=== PATIENT | male | born 2000 ===

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

== ENCOUNTER 2024-05-02 15:09 | Emergency (ER) | payer OTHER, SELFPAY ==
[2024-05-02] VITALS (18 sets, daily range): BP systolic 101–142; BP diastolic 59–80; PULSE 66–80; RESP 12–34; TEMP 38; O2SAT 93–100; BMI 24.9
--- NOTE | 2024-05-02 15:24 | EKG_ITS ---
[address] [address] [address] [address] Test Date: 2024-05-02 Pat Name: Michael Crain Department: Room: Gender: Male Oxygen Therapist: JOSE : 2000 Requested By: Order Number: [id number] Reading MD: Dominic Eli Measurements Intervals [place] Rate: 70 P: 45 CO: 142 QRS: 20 QRSD: 98 T: 42 QT: 372 QTc: 401 Interpretive Statements Normal sinus rhythm Electronically Signed On 05-03-2024 18:29:20 PDT by Dominic Eli
--- NOTE | 2024-05-02 15:38 | DI.RAD.S_ITS ---
PROCEDURE: XR CHEST 1V INDICATIONS: chest pain TECHNIQUE: One view of the chest was acquired. COMPARISON: None. FINDINGS: Surgical changes and devices: None. Lungs and pleura: Lungs are mildly abnormal with what appears to be mild perihilar pneumonitis. No pleural effusions or pneumothorax. Mediastinum: Mediastinal contours appear normal. Heart size is normal. Bones and chest wall: No suspicious bony lesions. Overlying soft tissues appear unremarkable. IMPRESSION: Suspect mild perihilar pneumonitis, likely viral in origin. Dictated by: Edgadro Hughes M.D. on 05/02/2024 at 15:59 Approved by: Edgardo Hughes M.D. on 05/02/2024 at 15:59
[2024-05-02 15:48] LABS: INR 1.1 (0.9-1.3); Prothrombin Time 12.5 SECONDS (9.4-12.5)
[2024-05-02 15:51] LABS: PTT Partial Thromboplastin Tim 33 SECONDS (25.1-36.5)
[2024-05-02 15:53] LABS: Add Manual Diff / Slide Review NO; Alanine Aminotransferase 33 IU/L (<50); Albumin 4.6 g/dL (3.5-5.0); Albumin Globulin Ratio 1.6 (1.0-2.8); Alkaline Phosphatase 52 U/L (38-126); Aspartate Aminotransferase 33 IU/L (17-59); BUN Creatinine Ratio 17.9 (6-22); Basophils Absolute Auto 0 /uL (0-100); Basophils Percent Auto 0.6 % (0-2); Bilirubin Total 2.1 mg/dL (0.2-1.3); Blood Urea Nitrogen 14 mg/dL (9-20); Calcium 8.8 mg/dL (8.4-10.2); Carbon Dioxide 24 mmol/L (22-32); Chloride 104 mmol/L (98-107); Creatine Kinase 46 U/L (55-170); Eosinophils Absolute Auto 200 /uL (0-450); Eosinophils Percent Auto 3.1 % (2-4); Estimated Glomerular Filt Rate > 60 mL/min (>60); Globulin 2.8 g/dL (1.7-4.1); Glucose 135 mg/dL (70-100); HEMOLYSIS 30 (0-50); Hematocrit 44.3 % (41-53); Hemoglobin 15.4 g/dL (13.5-17.5); Lipase 48 U/L (23-300); Lymphocytes Absolute Auto 2500 /uL (1100-4500); Magnesium 1.8 mg/dL (1.6-2.3); Mean Corpuscular HGB Conc 34.8 % (30-36); Mean Corpuscular Hemoglobin 29.5 PG (26-34); Mean Corpuscular Volume 84.8 fL (80-100); Monocytes Absolute Auto 700 /uL (0-900); Monocytes Percent Auto 9.9 % (3-14); Neutrophils Absolute Auto 3800 /uL (1500-7000); Neutrophils Percent Auto 52.4 % (50-75); Platelet Count 214 X10^3/uL (150-400); Potassium 3.6 mmol/L (3.4-5.1); Red Blood Cell Count 5.23 X10^6/uL (4.5-5.9); Red Cell Distribution Width 12.6 % (11.6-14.8); Sodium 139 mmol/L (137-145); Total Protein 7.4 g/dL (6.3-8.2); White Blood Cell Count 7.2 X10^3/uL (4.5-11.0)
[2024-05-02 16:04] LABS: NT-proBNP (BNP-Adult 18+) < 20 pg/mL (<125); Troponin I < 0.012 ng/mL (0.01-0.034)
--- NOTE | 2024-05-02 19:17 | ED.SYNCOPE ---
HPI - Syncope General Chief Complaint: Syncope Stated Complaint: Syncopal Episode Time Seen by Provider: 05/02/24 15:15 Source: patient and EMS Mode of arrival: EMS Limitations: no limitations History of Present Illness HPI narrative: 24-year-old male without any significant past medical history presents for syncopal event. According to the patient he has history of syncope whenever he sees blood, he states that today he had a bowel movement saw some blood in the toilet paper and subsequently had 3 episodes of syncope. These episodes lasted no more than 10-15 seconds with complete return to baseline immediately. While patient was being triaged and getting IV patient also had episode of syncope which lasted only for few seconds he again returned to baseline. After insertion of the IV patient well-appearing nontoxic just stating he feels a little tired but otherwise there was no witnessed seizure-like activity. He otherwise is not complaining of any headache visual disturbances chest pain shortness breath fever chills nausea vomiting abdominal pain or any other GI/ symptoms. Related Data Home Medications Medication Instructions Recorded Confirmed cephalexin 500 mg capsule (Keflex) 500 mg PO QID 03/08/18 03/08/18 Allergies Allergy/AdvReac Type Severity Reaction Status Date / Time No Known Drug Allergies Allergy Verified 03/08/18 11:33 Review of Systems Review of Systems Narrative: General: Denies fever, chills, weight loss HEENT: Denies headache, eye drainage, eye irritation, head trauma, sore throat, voice change Cardiovascular: Denies any chest pain, palpitations, tachycardia Respiratory: Denies any shortness of breath, cough, wheeze, stridor GI/: Denies any abdominal pain, nausea, vomiting, diarrhea, bright red blood per rectum, melanotic stools, urinary frequency, urinary retention, dysuria, hematuria MSK: Denies any joint pain, muscle pains, swelling Skin: Denies any rashes, lesions, discoloration Neuro: Positive syncope, denies headache lightheadedness dizziness Psych: Denies SI/HI Patient History Medical History (Updated 05/02/24 @ 19:34 by Dominic Pritchard DO) Pain in right toe(s) Ingrowing nail Cellulitis of right toe Cellulitis of left toe Social History household members: family Smoking Status: Never smoker Smoking Status: Never smoker Exam Narrative Exam Narrative: General: Cooperative, comfortable, well-developed, not in acute distress HEENT: Normocephalic, atraumatic, PERRLA, normal sclera, eyelids normal, Neck: Active full range of motion, atraumatic Chest: Normal to inspection, negative crepitus, no overlying erythema ecchymosis Respiratory: Normal respiratory effort, not in acute respiratory distress, clear to auscultation bilaterally negative cough, wheeze, tachypnea, rhonchi, rales Cardiology: Regular rate rhythm negative gallop, murmur, rubs GI/: Normal to inspection, soft, nonrigid, no tenderness to palpation, exam deferred MSK: Full range of active range of motion of all 4 extremities, atraumatic Skin: No rashes lesions noted Neuro: NIH of 0, no focal deficits Alert awake oriented x3, moves all 4 extremities spontaneously, cranial nerves intact, able to answer all questions appropriately follows commands appropriately Psych: Cooperative, negative suicidal or homicidal ideations Initial Vital Signs Initial Vital Signs: Vital Signs Pulse Oximetry 93 05/02/24 15:13 Course Orders Ordered: ED Orders 05/02/24 15:20 Complete Blood Count AUTO DIFF Stat Comprehensive Metabolic Panel Stat Lipase Stat Magnesium Stat NT-proBNP (BNP-Adult 18+) Stat PTT Partial Thromboplastin [place] Stat Prothrombin Time INR Stat Troponin & CK Cardiac Panel Stat 05/02/24 15:38 XR chest 1V Stat EKG-12 Lead Stat Vital Signs Vital signs: Vital Signs - 8 hr 05/02/24 15:13 05/02/24 15:14 05/02/24 15:14 Temperature Pulse Rate 75 Respiratory Rate Blood Pressure 142/62 H Pulse Oximetry 93 99 Oxygen Delivery Method 05/02/24 15:30 05/02/24 15:31 05/02/24 15:31 Temperature Pulse Rate 67 66 Respiratory Rate 12 13 Blood Pressure 128/80 Pulse Oximetry 99 98 Oxygen Delivery Method 05/02/24 15:33 05/02/24 15:40 05/02/24 16:17 Temperature 100.4 F H Pulse Rate 68 71 Respiratory Rate 18 25 H Blood Pressure 142/62 H Pulse Oximetry 100 98 Oxygen Delivery Method Room Air 05/02/24 16:18 05/02/24 16:18 05/02/24 16:30 Temperature Pulse Rate 68 Respiratory Rate 34 H Blood Pressure 128/59 L 123/60 Pulse Oximetry 98 Oxygen Delivery Method 05/02/24 16:30 05/02/24 17:00 05/02/24 17:21 Temperature Pulse Rate 70 67 Respiratory Rate 21 22 Blood Pressure 101/59 L Pulse Oximetry 98 97 Oxygen Delivery Method 05/02/24 17:21 05/02/24 17:30 05/02/24 17:31 Temperature Pulse Rate 69 68 Respiratory Rate 20 28 H Blood Pressure 109/62 Pulse Oximetry 97 98 Oxygen Delivery Method 05/02/24 17:31 05/02/24 18:00 05/02/24 18:00 Temperature Pulse Rate 67 68 Respiratory Rate 19 21 Blood Pressure 109/65 Pulse Oximetry 97 97 Oxygen Delivery Method 05/02/24 18:30 05/02/24 18:30 05/02/24 19:00 Temperature Pulse Rate 69 71 Respiratory Rate 21 26 H Blood Pressure 117/60 Pulse Oximetry 98 96 Oxygen Delivery Method 05/02/24 19:01 05/02/24 19:01 Temperature Pulse Rate 67 Respiratory Rate 23 Blood Pressure 118/59 L Pulse Oximetry 97 Oxygen Delivery Method Room Air MDM - Syncope Differential Diagnosis Differential diagnosis: Likely syncope due to orthostatic hypotension, complete atrioventricular block, dehydration and other (Electrolyte abnormality, ACS, pneumonia) Lab Data 05/02/24 15:20 05/02/24 15:20 Labs: Lab Results 05/02/24 Range/Units 15:20 WBC 7.2 (4.5-11.0) X10^3/uL RBC 5.23 (4.5-5.9) X10^6/uL Hgb 15.4 (13.5-17.5) g/dL Hct 44.3 (41-53) % MCV 84.8 (80-100) fL MCH 29.5 (26-34) PG MCHC 34.8 (30-36) % RDW 12.6 (11.6-14.8) % Plt Count 214 (150-400) X10^3/uL Neut % (Auto) 52.4 (50-75) % Lymph % (Auto) 34.0 (25-40) % [place] % (Auto) 9.9 (3-14) % Eos % (Auto) 3.1 (2-4) % Baso % (Auto) 0.6 (0-2) % Neut # (Auto) 3800 (3107-3881) /uL Lymph # (Auto) 2500 (5096-8426) /uL [place] # (Auto) 700 (0-900) /uL Eos # (Auto) 200 (0-450) /uL Baso # (Auto) 0 (0-100) /uL PT 12.5 (9.4-12.5) SECONDS INR 1.1 (0.9-1.3) APTT 33 (25.1-36.5) SECONDS Sodium 139 (137-145) mmol/L Potassium 3.6 (3.4-5.1) mmol/L Chloride 104 (98-107) mmol/L Carbon Dioxide 24 (22-32) mmol/L BUN 14 (9-20) mg/dL Creatinine 0.78 (0.66-1.25) mg/dL Estimated GFR > 60 (>60) mL/min BUN/Creatinine Ratio 17.9 (6-22) Glucose 135 H (70-100) mg/dL Calcium 8.8 (8.4-10.2) mg/dL Magnesium 1.8 (1.6-2.3) mg/dL Total Bilirubin 2.1 H (0.2-1.3) mg/dL AST 33 (17-59) IU/L ALT 33 (<50) IU/L Alkaline Phosphatase 52 (38-126) U/L Total Creatine Kinase 46 L (55-170) U/L Troponin I < 0.012 (0.01-0.034) ng/mL NT-Pro-B Natriuret Pep < 20 (<125) pg/mL Total Protein 7.4 (6.3-8.2) g/dL Albumin 4.6 (3.5-5.0) g/dL Globulin 2.8 (1.7-4.1) g/dL Albumin/Globulin Ratio 1.6 (1.0-2.8) Lipase 48 (23-300) U/L Imaging Data Chest x-ray: Radiologist's Impression: [address] [address] XRay Report Signed Patient: Michael Crain MR#: [id number] : 2000 Acct:[id number] Age/Sex: 24 / M Date of Service: 05/02/24 Loc: ED Accession Number: [id number] Procedure: XR chest 1V Ordering Provider: Marissa Horowitz D.O. PROCEDURE: XR CHEST 1V INDICATIONS: chest pain TECHNIQUE: One view of the chest was acquired. COMPARISON: None. FINDINGS: Surgical changes and devices: None. Lungs and pleura: Lungs are mildly abnormal with what appears to be mild perihilar pneumonitis. No pleural effusions or pneumothorax. Mediastinum: Mediastinal contours appear normal. Heart size is normal. Bones and chest wall: No suspicious bony lesions. Overlying soft tissues appear unremarkable. IMPRESSION: Suspect mild perihilar pneumonitis, likely viral in origin. ECG Data Interpretation: EKG interpreted ED physician sinus 70 beats per minute QTC [address] changes no STEMI MDM Narrative Medical decision making narrative: 24-year-old male with a past medical history of no significance presents for witnessed syncopal event. Patient states he has a history of syncope whenever he sees blood, he states that he had 1 episode of bright red blood per rectum states that when he wiped and saw the blood he passed out. He has had multiple other witnessed syncopal events not lasting more than 10-15 seconds with complete return to baseline immediately after. He also had an episode of witnessed syncope here in the emergency department when getting IV placed. Again lasting only for few seconds he was able to return to complete baseline no focal deficits, just stating that he feels a little tired, on exam patient well-appearing nontoxic lab work unremarkable, troponin negative EKG nonischemic, chest x-ray without any acute signs of consolidation, patient [place] syncope score-3, very low risk. Rectal exam hemoccult negative but did note small anal fissure to the posterior aspect, patient states that he already has steroids for this Patient's symptoms more likely vasovagal secondary to witnessing blood. Patient is well-appearing nontoxic, he was given strict return precautions and verbalized understanding of this and agrees to being discharged home with outpatient follow up Discharge Plan Departure Patient Disposition: Home Clinical Impression: Vasovagal syncope, Anal fissure Instructions: DI for Syncope in Adults (Fainting), DI for Anal Fissure Activity Restrictions/Additional Instructions: Please follow up with the primary care doctor, please increase your fiber intake Please read the discharge instructions sheet carefully and bring all papers to all doctor follow-up visits, as it may contain information that your doctor may want to see. Disease processes change and evolve, if your symptoms worsen or if you develop any new symptoms that are concerning to you please return for evaluation. Your evaluation today does not show any evidence of any life-threatening/serious illnesses requiring admission to the hospital or surgery. Please follow-up with your doctor for re-evaluation in approximately 1 day. Seek immediate medical attention for any worrisome symptoms. *If you do not have a primary care provider please contact the [facility] Resource line at [phone]. They will ask some questions about your medical history and help get you set up with a doctor in the community. Prescriptions: No Action cephalexin [Keflex] 500 mg Capsule 500 mg PO QID Referrals: Daron Blank ARNP [Primary Care Provider] - Stand Alone Forms: Patient Portal/API/Survey
== END 2024-05-02 19:46 | disposition home or self-care (01) ==
PROVIDERS: Emergency Medicine; Emergency Provider Student in an Organized Health Care Education/Training Program; PCP Registered Nurse
DX: R55 Syncope and collapse (principal); K60.2 Anal fissure, unspecified; R07.9 Chest pain, unspecified
CPT/HCPCS: 71045; 80053; 82550; 83690; 83735; 83880; 84484; 85025; 85610; 85730; 93005; 99282; 99284